=== PATIENT | female | born 1990 | race Caucasian/White ===

== ENCOUNTER 2018-12-26 00:36 | Emergency (ER) | payer OTHER ==
[~2018-12-26] VITALS: Ht 165.1 cm; Wt 56.8 kg
[2018-12-26 00:47] VITALS: Ht 165.1 cm; Wt 56.8 kg
[2018-12-26] MEDS ORDERED: SOD CHLORIDE 0.9% 1,000 ML IV STA (00:53)
[2018-12-26] MEDS ORDERED: KETOROLAC 30 MG INJ IV STA (01:54)
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
[2018-12-26] MEDS ORDERED: IBUP-1561 PO (04:14)
[2018-12-26 05:11] VITALS: BP 101/63; PULSE 74; RESP 14
== END 2018-12-26 05:15 | disposition home or self-care (01) ==
LOC: E/R 00:36
DX: S40.022A Contusion of left upper arm, initial encounter (principal); R40.2142 Coma scale, eyes open, spontaneous, at arrival to emergency department; R40.2362 Coma scale, best motor response, obeys commands, at arrival to emergency department; R40.2252 Coma scale, best verbal response, oriented, at arrival to emergency department; S59.902A Unspecified injury of left elbow, initial encounter; F12.929 Cannabis use, unspecified with intoxication, unspecified; I95.9 Hypotension, unspecified; R07.9 Chest pain, unspecified; V00.831A Fall from motorized mobility scooter, initial encounter
CPT/HCPCS: 29105; 71045; 73080; 73090; 80048; 82962; 84703; 85025; 93005; 96361; 96374; J1885; J7030; Z7502; Z7610